=== PATIENT | male | born 1995 | race American Indian/Alaskan Native ===

== ENCOUNTER 2018-08-18 04:31 | Emergency (ER) | payer OTHER ==
[2018-08-18 07:11] VITALS: BP 124/71
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
[2018-08-18] MEDS ORDERED: IBUPROFEN PO ONE (08:17)
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
== END 2018-08-18 08:39 | disposition home or self-care (01) ==
LOC: ED 04:31
DX: S86.912A Strain of unspecified muscle(s) and tendon(s) at lower leg level, left leg, initial encounter (principal); M54.5 Low back pain; M25.571 Pain in right ankle and joints of right foot; V49.49XA Driver injured in collision with other motor vehicles in traffic accident, initial encounter; Y93.89 Activity, other specified; Y92.488 Other paved roadways as the place of occurrence of the external cause; Y99.8 Other external cause status
CPT/HCPCS: 70450; 72125; 99283